=== PATIENT | male | born 2000 | race Caucasian/White ===

== ENCOUNTER 2022-12-21 03:40 | Emergency (ER) | payer SELFPAY ==
[~2022-12-21] VITALS: Ht 177.8 cm; Wt 63.5 kg
[2022-12-21 03:51] VITALS: BP 99/69; PULSE 87; RESP 20; TEMP 97.7; O2SAT 99
[2022-12-21 04:25] VITALS: BP 99/69; PULSE 87; RESP 20; TEMP 97.7; O2SAT 99
--- NOTE | 2022-12-21 04:25 | NUR ---
PATIENT BIB [facility] . PATIENT EXAMINED BY . PATIENT MEDICALLY CLEARED AND RELEASED IN CUSTODY IN STABLE CONDITION. ORIGINAL PRE-BOOK FORM GIVEN TO OFFICER SHER[facility].
== END 2022-12-21 04:25 ==
LOC: MED 03:40
DX: S50.312A Abrasion of left elbow, initial encounter (principal); Z02.89 Encounter for other administrative examinations; Z90.49 Acquired absence of other specified parts of digestive tract; V89.2XXA Person injured in unspecified motor-vehicle accident, traffic, initial encounter; Y93.89 Activity, other specified; Y92.410 Unspecified street and highway as the place of occurrence of the external cause; Y99.8 Other external cause status
CPT/HCPCS: 99283